=== PATIENT | female | born 1950 | race Caucasian/White ===

== ENCOUNTER 2017-04-21 21:42 | Emergency (ER) | payer OTHER, MEDICAID ==
[~2017-04-21] VITALS: Ht 162.6 cm; Wt 75.0 kg
[~2017-04-21 21:42] MED LIST: ALPR-138 PO; AMIT75TA6 PO; AMOX500T2 PO; ARIC10TA PO; ESTROBLEND PO; FIORTAB4 PO; FLUO-1 PO; GLIP5 PO; GLUCTAB PO; LORA10TA7 PO; LORTA5 PO; NAPR500 PO; OMEP20CA5 PO; TOLN30CR TOP; VENL75XR PO
[2017-04-21 22:17] VITALS: BP 150/69; PULSE 88; RESP 16; TEMP 98.6; O2SAT 95
[2017-04-21 22:33] LABS: AUTOMATED NEUTROPHIL # 3.6 TH/MM3 (1.8-7.7); BASOPHIL % 0.6 % (0.0-2.0); EOSINOPHIL # 0.2 TH/MM3 (0-0.4); EOSINOPHIL % 2.9 % (0.0-4.0); HEMATOCRIT 37.9 % (35.0-46.0); HEMO FLAGS DIFF FINAL; LYMPH % 31.3 % (9.0-44.0); MEAN CELL VOLUME 94.7 FL (80.0-100.0); MEAN CORPUSCULAR HEMOGLOBIN 32.4 PG (27.0-34.0); MEAN CORPUSCULAR HGB CONC 34.2 % (32.0-36.0); MONO % 8.5 % (0.0-8.0); NEUT % 56.7 % (16.0-70.0); PLATELET COUNT 310 TH/MM3 (150-450); RED CELL DISTRIBUTION WIDTH 12.1 % (11.6-17.2); WHITE BLOOD COUNT 6.3 TH/MM3 (4.0-11.0)
[2017-04-21 22:44] LABS: AMPHETAMINE, URINE NEG (NEG); BARBITURATES, URINE POS (NEG); COCAINE, URINE NEG (NEG)
[2017-04-21 23:02] LABS: ALT (GPT) 32 U/L (10-53); ANION GAP 7 MEQ/L (5-15); AST (GOT) 21 U/L (15-37); BICARBONATE 27.9 MEQ/L (21.0-32.0); BLOOD UREA NITROGEN 22 MG/DL (7-18); CHLORIDE 108 MEQ/L (98-107); GLOMERULAR FILTRATION RATE 40 ML/MIN (>89); POTASSIUM 4.4 MEQ/L (3.5-5.1); SODIUM (NA) 143 MEQ/L (136-145)
[2017-04-21 23:03] LABS: ALKALINE PHOSPHATASE 97 U/L (45-117); TOTAL BILIRUBIN ADULT 0.2 MG/DL (0.2-1.0)
[2017-04-22] MEDS ORDERED: ALPR2TAB3 PO (00:42)
--- NOTE | 2017-04-22 00:49 | PD ---
HPI Chief Complaint: Psychiatric Symptoms Time Seen by Provider: 00:47 Travel History International Travel<30 days: No Contact w/Intl Traveler<30days: No Traveled to known affect area: No History of Present Illness HPI Patient comes in under a [place] act by police for allegedly making suicidal statements. Patient denies any suicidal or homicidal ideations. Patient is concerned as she has left her clothes in the washing machine prior to being brought to the emergency department. Patient denies any medical concerns this time. Denies any chest pain, shortness of breath, fevers, developing, back pain , or fevers. Patient's only concern is that she has insomnia would like her nighttime sleeping medicine, but is uncertain the name. Denies anything making her symptoms better or worse. PFSH Past Medical History Arthritis: Yes Asthma: No Autoimmune Disease: No Blood Disorders: No Anxiety: Yes Depression: Yes Heart Rhythm Problems: No Cancer: No Cardiovascular Problems: Yes High Cholesterol: Yes Chemotherapy: No Chest Pain: No Congestive Heart Failure: No COPD: No Cerebrovascular Accident: Yes Diabetes: Yes Patient Takes Glucophage: Yes Diminished Hearing: No Endocrine: Yes (HYPOTHYROID, DIABETES) Gastrointestinal Disorders: Yes GERD: No Glaucoma: No Genitourinary: No Headaches: No Hepatitis: No Hiatal Hernia: No Hypertension: Yes Immune Disorder: No Kidney Stones: No Medical other: Yes (STROKE , SPINAL MENIGITIS ) Musculoskeletal: Yes Neurologic: Yes Psychiatric: Yes Reproductive: No Respiratory: Yes Immunizations Current: No Migraines: No Myocardial Infarction: No Radiation Therapy: No Renal Failure: No Seizures: No Sickle Cell Disease: No Sleep Apnea: No Thyroid Disease: Yes Ulcer: No Tetanus Vaccination: Unknown Influenza Vaccination: No Dilation and Curettage (D&C): Yes Past Surgical History Abdominal Surgery: Yes (APPY AND HYS) AICD: No Appendectomy: Yes Arteriovenous Shunt: No Cardiac Surgery: No Section: Yes Cholecystectomy: No Ear Surgery: No Endocrine Surgery: No Eye Surgery: No Genitourinary Surgery: No Gynecologic Surgery: Yes (HYSTERECTOMY) Hysterectomy: Yes Insulin Pump: No Joint Replacement: No Oral Surgery: No Pacemaker: No Thoracic Surgery: No Other Surgery: Yes (appendix) Social History Alcohol Use: No Tobacco Use: No Substance Use: No Allergies-Medications (Allergen,Severity, Reaction): Coded Allergies: Ciclopirox (Verified Allergy, Severe, difficulty swallowing, dizziness, ) Gabapentin (Unverified Allergy, Severe, THINKS IT SWELLED EYES AND BLURRIED VISION. , 04/22/17) Terbinafine (Unverified Allergy, Severe, PT THINKS IT MADE EYES SWELL AND BLURRIED VISION., 04/22/17) Zithromax (Verified Allergy, Severe, difficulty swallowing,dizziness, 04/22) Darvocet-N 100 (Verified Allergy, Mild, Nausea/Vomiting, 04/22/17) Darvon (Verified Allergy, Mild, Nausea/Vomiting, 04/22/17) Sulfa (Verified Allergy, Mild, 04/22/17) Reported Meds & Prescriptions Reported Meds & Active Scripts Active Fioricet (Acetaminophen/Butalbital/Caffeine) Tab 2 Tab PO Q6HPRN FOR HEADACHE Augmentin 500MG/125MG (Amoxicillin/Clavulanate Potassium) 500 Mg Tab 500 Mg PO BID [place] 5-325 mg (Hydrocodone-Acetaminophen 5-325 mg) 325 Mg/5 Mg Tab 1 Tab PO Q6HPRN UNKNOWN DOSE Reported Alprazolam 2 Mg Tab 2 Mg PO BID Claritin (Loratadine) 10 Mg Tab 10 Mg PO DAILY Glucotrol (Glipizide) 5 Mg Tab 2.5 PO HS UNKNOWN DOSE Glucotrol (Glipizide) 5 Mg Tab 2.5 Mg PO BID UNKNOWN DOSE Elavil (Amitriptyline HCl) 75 Mg Tab 75 Mg PO HS Prilosec 20 mg (Omeprazole) 20 Mg Capcr 20 Mg PO DAILY Effexor-Xr (Venlafaxine HCl) 75 Mg Caper 75 Mg PO DAILY Aricept (Donepezil HCl) 10 Mg Tab 10 Mg PO HS Glucophage XR 24 HR (Metformin HCl) 500 Mg Tab 500 Mg PO BID Tinactin (Tolnaftate) 1 % Cr 1 % TOP BID Naprosyn (Naproxen) 500 Mg Tab 500 Mg PO BID Prilosec 20 mg (Omeprazole) 20 Mg Capcr 20 Mg PO DAILY Prozac (Fluoxetine HCl) 10 Mg Cap 10 Mg PO DAILY Glucotrol (Glipizide) 5 Mg Tab 5 Mg PO DAILY [estroblend] 1 Tab PO DAILY Review of Systems Except as stated in HPI: all other systems reviewed are Neg Physical Exam Narrative GENERAL: Well-developed, overly nourished, in no acute distress, and non-ill appearing. SKIN: Focused skin assessment warm and dry. HEAD: Atraumatic. Normocephalic. EYES: Pupils equal and round. EOMI. No scleral icterus. No injection or drainage. ENT: No nasal bleeding or discharge. Mucous membranes pink and moist. NECK: Trachea midline. Supple. No nuclear rigidity. CARDIOVASCULAR: Regular rate and rhythm. No murmur appreciated. RESPIRATORY: No accessory muscle use. No respiratory distress. Clear to auscultation. Breath sounds equal bilaterally. MUSCULOSKELETAL: No obvious deformities. No clubbing. No cyanosis. No edema. Full range of motion. NEUROLOGICAL: Awake and alert. No obvious cranial nerve deficits. Motor grossly within normal limits. Normal speech. PSYCHIATRIC: Appropriate mood and affect; insight and judgment normal. Data Data Last Documented VS Vital Signs Date Time Temp Pulse Resp B/P Pulse Ox O2 Delivery O2 Flow Rate FiO2 04/21/17 23:32 16 04/21/17 22:17 98.6 88 150/69 95 Room Air Orders Complete Blood Count With Diff (04/21/17 21:49) Comprehensive Metabolic Panel (04/21/17 21:49) Psych Screen (04/21/17 21:49) Drug Screen, Random Urine (04/21/17 21:49) Alcohol (Ethanol) (04/21/17 21:49) Salicylates (Aspirin) (04/21/17 21:57) Tylenol (Acetaminophen) (04/21/17 21:57) Amitriptyline (Elavil) (04/22/17 01:00) Labs Laboratory Tests Test 04/21/17 22:00 White Blood Count 6.3 TH/MM3 Red Blood Count 4.00 MIL/MM3 Hemoglobin 13.0 GM/DL Hematocrit 37.9 % Mean Corpuscular Volume 94.7 FL Mean Corpuscular Hemoglobin 32.4 PG Mean Corpuscular Hemoglobin 34.2 % Concent Red Cell Distribution Width 12.1 % Platelet Count 310 TH/MM3 Mean Platelet Volume 7.4 FL Neutrophils (%) (Auto) 56.7 % Lymphocytes (%) (Auto) 31.3 % Monocytes (%) (Auto) 8.5 % Eosinophils (%) (Auto) 2.9 % Basophils (%) (Auto) 0.6 % Neutrophils # (Auto) 3.6 TH/MM3 Lymphocytes # (Auto) 2.0 TH/MM3 Monocytes # (Auto) 0.5 TH/MM3 Eosinophils # (Auto) 0.2 TH/MM3 Basophils # (Auto) 0.0 TH/MM3 CBC Comment DIFF FINAL Differential Comment Sodium Level 143 MEQ/L Potassium Level 4.4 MEQ/L Chloride Level 108 MEQ/L Carbon Dioxide Level 27.9 MEQ/L Anion Gap 7 MEQ/L Blood Urea Nitrogen 22 MG/DL Creatinine 1.33 MG/DL Estimat Glomerular Filtration 40 ML/MIN Rate Random Glucose 143 MG/DL Calcium Level 8.9 MG/DL Total Bilirubin 0.2 MG/DL Aspartate Amino Transf 21 U/L (AST/SGOT) Alanine Aminotransferase 32 U/L (ALT/SGPT) Alkaline Phosphatase 97 U/L Total Protein 6.9 GM/DL Albumin 3.6 GM/DL Salicylates Level LESS THAN 1.7 MG/DL Urine Opiates Screen NEG Acetaminophen Level LESS THAN 2.0 MCG/ML Urine Barbiturates Screen POS Urine Amphetamines Screen NEG Urine Benzodiazepines Screen POS Urine Cocaine Screen NEG Urine Cannabinoids Screen NEG Ethyl Alcohol Level LESS THAN 3 MG/DL MDM Medical Decision Making Medical Screen Exam Complete: Yes Emergency Medical Condition: Yes Differential Diagnosis Homicidal, suicidal, electrolyte abnormality, other Narrative Course Patient was seen and examined. Labs were obtained and reviewed. Patient medically cleared for further treatment and evaluation by psych. Final disposition per psych. Diagnosis Primary Impression: Medical clearance for psychiatric admission Condition: Stable Rosas Castillo Apr 22, 2017 00:49
[2017-04-22] MEDS ORDERED: AMITRIPTYLINE HCL 75 MG TAB PO ONE (01:00)
[2017-04-22] MEDS ORDERED: CANA300T PO (01:43)
[2017-04-22] MEDS ORDERED: QUET1TAB10 PO (01:44)
[2017-04-22] MEDS ORDERED: thyroid med (01:46)
[2017-04-22 01:47] VITALS: BP 160/82; PULSE 86; RESP 16; TEMP 98.2; O2SAT 97
[2017-04-22 02:30] VITALS: BP 163/81; PULSE 88; RESP 18; O2SAT 96
[2017-04-22 06:10] VITALS: BP 128/70; PULSE 75; RESP 17; O2SAT 98
[2017-04-22] MEDS ORDERED: metFORMIN HCL 500 MG TAB PO ONE (08:30)
[2017-04-22 12:31] VITALS: BP 110/55; PULSE 76; RESP 18; O2SAT 96
--- NOTE | 2017-04-23 10:21 | PD.PSY.CON ---
Provisional Diagnosis Admission Date [place] I. Adjustment disorder with depressed mood, history of depression, anxiety [place] II. Deferred [place] III. DM, hypothyroidism History of Present Illness Service Psychiatry Consult Requested By Primary Care Physician Unknown HPI The patient is a 66-year-old woman, domiciled alone, 3 kids, unemployed, on SSI, with psychiatric history of depression and anxiety, no previous psychiatric hospitalizations, outpatient psychiatric care, he is on Xanax 2 mg twice a day, Effexor 225 mg, 1 previous suicidal attempts, history of self cutting, medical history of hypothyroidism, migraines, hypertension, who comes to the ER comes in under a [place] act by police for allegedly making suicidal statements. On psychiatric evaluation patient reports that yesterday she had an argument with her fianc. She admits that she made a suicidal statement under anger and frustration. However, patient denies depressive symptoms, she denies anxiety, she denies psychosis. She says that she has been compliant with her psychotropics, also compliant with follow-ups. Patient denies any suicidal or homicidal ideations at this moment. Patient is concerned as she has left her clothes in the washing machine prior to being brought to the emergency department. Patient denies any medical concerns this time. She is oriented 3, no attention deficit. She reports the use of drugs or alcohol. Review of Systems Constitutional: DENIES: Diaphoretic episodes, Fatigue, Fever, Weight gain, Weight loss, Chills, Dizziness, Change in appetite, Night Sweats Endocrine: DENIES: Abnorml menstrual pattern, Heat/cold intolerance, Polydipsia , Polyuria, Polyphagia Eyes: DENIES: Blurred vision, Diplopia, Eye inflammation, Eye pain, Vision loss , Photosensitivity, Double Vision Ears, nose, mouth, throat: DENIES: Tinnitus, Hearing loss, Vertigo, Nasal discharge, Oral lesions, Throat pain, Hoarseness, Ear Pain, Running Nose, Epistaxis, Sinus Pain, Toothache, Odynophagia Respiratory: DENIES: Apneas, Cough, Snoring, Wheezing, Hemoptysis, Sputum production, Shortness of breath Cardiovascular: DENIES: Chest pain, Palpitations, Syncope, Dyspnea on Exertion , PND, Lower Extremity Edema, Orthopnea, Claudication Gastrointestinal: DENIES: Abdominal pain, Black stools, Bloody stools, Constipation, Diarrhea, Nausea, Vomiting, Difficulty Swallowing, Anorexia Musculoskeletal: DENIES: Joint pain, Muscle aches, Stiffness, Joint Swelling, Back pain, Neck pain Integumentary: DENIES: Abnormal pigmentation, Pruritus, Rash, Nail changes, Breast masses, Breast skin changes, Nipple discharge Hematologic/lymphatic: DENIES: Bruising, Lymphadenopathy Immunologic/allergic: DENIES: Eczema, Urticaria Neurologic: DENIES: Abnormal gait, Headache, Localized weakness, Paresthesias, Seizures, Speech Problems, Tremor, Poor Balance Psychiatric: DENIES: Anxiety, Confusion, Mood changes, Depression, Hallucinations, Agitation, Suicidal Ideation, Homicidal Ideation, Delusions Past Family Social History Coded Allergies: Ciclopirox (Verified Allergy, Severe, difficulty swallowing, dizziness, ) Gabapentin (Unverified Allergy, Severe, THINKS IT SWELLED EYES AND BLURRIED VISION. , 04/22/17) Terbinafine (Unverified Allergy, Severe, PT THINKS IT MADE EYES SWELL AND BLURRIED VISION., 04/22/17) Zithromax (Verified Allergy, Severe, difficulty swallowing,dizziness, 04/22) Darvocet-N 100 (Verified Allergy, Mild, Nausea/Vomiting, 04/22/17) Darvon (Verified Allergy, Mild, Nausea/Vomiting, 04/22/17) Sulfa (Verified Allergy, Mild, 04/22/17) Active Scripts Ancgtonmah-Nemgeknuzscbj-Kacro (Fioricet) Tab2 Tab PO Q6HPRN #30 FOR HEADACHE Prov:Kameron Camp MD 05/28/10 Hydrocodone-Acetaminophen 5-325 mg ([place] 5-325 mg)325 Mg/5 Mg Tab1 Tab PO Q6HPRN #12 UNKNOWN DOSE Prov:LAURA ARMENDARIZ M.D. 05/15/10 Reported Medications [thyroid med] No Conflict Check 04/22/17 Quetiapine 300 Mg [id number] Mg PO HS #30 TAB Ref 0 04/22/17 Canagliflozin (Invokana)300 Mg [id number] Mg PO DAILY #30 TAB Ref 0 Take before 1st meal of day. 04/22/17 Alprazolam 2 Mg Tab2 Mg PO BID 04/22/17 Omeprazole 20 mg (Prilosec 20 mg)20 Mg Capcr20 Mg PO DAILY 05/15/10 Venlafaxine Hcl (Effexor-Xr)75 Mg [id number] Mg PO DAILY 05/15/10 Metformin XR 24 HR (Glucophage XR 24 HR)500 Mg Tab1,000 Mg PO BID 05/15/10 Naproxen (Naprosyn)500 Mg [id number] Mg PO BID 05/28/10 Discontinued Reported Medications Loratadine (Claritin)10 Mg Tab10 Mg PO DAILY 05/15/10 Glipizide (Glucotrol)5 Mg Tab2.5 Po Hs UNKNOWN DOSE 05/15/10 Glipizide (Glucotrol)5 Mg Tab2.5 Mg PO BID UNKNOWN DOSE 05/15/10 Amitriptyline Hcl (Elavil)75 Mg Tab75 Mg PO HS 05/15/10 Donepezil Hydrochloride (Aricept)10 Mg Tab10 Mg PO HS 05/15/10 Tolnaftate (Tinactin)1 % Cr1 % Top Bid 05/28/10 Alprazolam (Xanax)0.25 Mg Tab0.25 Mg PO TIDPRN 05/28/10 Omeprazole 20 mg (Prilosec 20 mg)20 Mg Capcr20 Mg PO DAILY 05/28/10 Fluoxetine Hcl (Prozac)10 Mg Cap10 Mg PO DAILY 05/28/10 Glipizide (Glucotrol)5 Mg Tab5 Mg PO DAILY 05/28/10 [estroblend] No Conflict Check1 Tab PO DAILY 05/28/10 Discontinued Scripts Amoxicillin & Pot Clavulanate (Augmentin 500MG/125MG)500 Mg [id number] Mg PO BID # 20 Prov:LAURA ARMENDARIZ M.D. 05/15/10 Family History Patient denies family psychiatric history Social History Patient was born and raised in [place], she lives in [facility] alone, she has a fianc, she has 3 kids, unemployed, supported by [employer], her highest level of education is college Physical Exam No tremors, no EPS, no psychomotor AGITATION or retardation Vital Signs Vital Signs Date Time Temp Pulse Resp B/P Pulse Ox O2 Delivery O2 Flow Rate FiO2 04/22/17 12:31 76 18 110/55 96 Room Air 04/22/17 01:47 98.2 Lab Results Labs Laboratory Tests Test 04/21/17 22:00 White Blood Count 6.3 TH/MM3 Red Blood Count 4.00 MIL/MM3 Hemoglobin 13.0 GM/DL Hematocrit 37.9 % Mean Corpuscular Volume 94.7 FL Mean Corpuscular Hemoglobin 32.4 PG Mean Corpuscular Hemoglobin 34.2 % Concent Red Cell Distribution Width 12.1 % Platelet Count 310 TH/MM3 Mean Platelet Volume 7.4 FL Neutrophils (%) (Auto) 56.7 % Lymphocytes (%) (Auto) 31.3 % Monocytes (%) (Auto) 8.5 % Eosinophils (%) (Auto) 2.9 % Basophils (%) (Auto) 0.6 % Neutrophils # (Auto) 3.6 TH/MM3 Lymphocytes # (Auto) 2.0 TH/MM3 Monocytes # (Auto) 0.5 TH/MM3 Eosinophils # (Auto) 0.2 TH/MM3 Basophils # (Auto) 0.0 TH/MM3 CBC Comment DIFF FINAL Differential Comment Sodium Level 143 MEQ/L Potassium Level 4.4 MEQ/L Chloride Level 108 MEQ/L Carbon Dioxide Level 27.9 MEQ/L Anion Gap 7 MEQ/L Blood Urea Nitrogen 22 MG/DL Creatinine 1.33 MG/DL Estimat Glomerular Filtration 40 ML/MIN Rate Random Glucose 143 MG/DL Calcium Level 8.9 MG/DL Total Bilirubin 0.2 MG/DL Aspartate Amino Transf 21 U/L (AST/SGOT) Alanine Aminotransferase 32 U/L (ALT/SGPT) Alkaline Phosphatase 97 U/L Total Protein 6.9 GM/DL Albumin 3.6 GM/DL Salicylates Level LESS THAN 1.7 MG/DL Urine Opiates Screen NEG Acetaminophen Level LESS THAN 2.0 MCG/ML Urine Barbiturates Screen POS Urine Amphetamines Screen NEG Urine Benzodiazepines Screen POS Urine Cocaine Screen NEG Urine Cannabinoids Screen NEG Ethyl Alcohol Level LESS THAN 3 MG/DL Mental Status Examination Appearance woman, age appearing, good hygiene, calm and cooperative Speech: Unremarkable Orientation: x3 Memory: Unremarkable Thought Process: Logical Thought Content: Unremarkable Hallucination Type: None Suicidal Ideation: No Previous Suicide Attempts: No Homicidal Ideation: No Previous Homicide Attempts: No Insight: Good Affect: Good Affect if Inappropriate: Flat Mood: Appropriate Motor Activity: Normal gait Assessment & Plan Problem List: (1) Adjustment disorder with depressed mood Assessment & Plan: At the moment of this evaluation the patient is logical, coherent and relevant. Oriented 3. She denies depressive symptoms, denies anxiety, denies jules and psychosis. She denies suicidal and homicidal ideation , she denies visual and auditory hallucinations. Patient does not meet criteria for psychiatric admission at this moment. Olivas at will be lifted. ICD Code: F43.21 Assessment & Plan Estimated LOS: Devon Hodges MD Apr 23, 2017 10:21
== END 2017-04-22 14:53 | disposition home or self-care (01) ==
LOC: NEPD 21:42 → NEPJ 04-22 14:53
DX: R45.851 Suicidal ideations (principal); G47.00 Insomnia, unspecified; Z79.899 Other long term (current) drug therapy
CPT/HCPCS: 80053; 80307; 85025; 99283